=== PATIENT | male | born 2000 | race Hispanic/Latino ===

== ENCOUNTER 2025-02-24 08:42 | Emergency (ER) | payer SELFPAY ==
[2025-02-24 08:56] VITALS: BP 138/77
--- NOTE | 2025-02-24 09:50 | EDRN ---
This RN assumed care of pt at 9:50.
[2025-02-24 09:58] VITALS: BMI 27.3
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
[2025-02-24 15:03] VITALS: BP 138/77
== END 2025-02-24 15:04 | disposition home or self-care (01) ==
LOC: EMR 08:42
PROVIDERS: EMERGENCY PHYSICIAN Student in an Organized Health Care Education/Training Program
DX: S02.2XXA Fracture of nasal bones, initial encounter for closed fracture (principal); V29.91XA Electric (assisted) bicycle rider (driver) (passenger) injured in unspecified traffic accident, initial encounter; Y93.55 Activity, bike riding
CPT/HCPCS: 99284; 70486